=== PATIENT | female | born 1995 | race African-American/Black ===

== ENCOUNTER 2020-01-09 17:33 | Emergency (ER) | payer OTHER ==
[~2020-01-09] VITALS: Ht 157.5 cm; Wt 51.9 kg
--- NOTE | 2020-01-09 17:40 | Emergency Department Note ---
History of Present Illnes History of Present Illness Chief Complaint: Genitourinary History of Present Illness This is a 24 year old female presents to the ED for pelvic discharge white s josiah this AM. Patient denies abd pain , vb . PMH of BV . Historian: Patient Arrival Mode: Car Onset (how long ago): hour(s) Severity: mild Onset quality: gradual Duration (how long): hour(s) Timing of current episode: constant Progression: unchanged Chronicity: recurrent Context: Denies recent illness, Denies recent surgery, Denies recent immobilization, Denies recent travel, Denies trauma/injury, Denies new medicati ons, Denies hx of DVT/PE, Denies non-compliance w/ medications, Denies other Relieving factors: none Exacerbating factors: none Associated symptoms: Denies denies other symptoms, Denies confusion, Denies chest pain, Denies cough, Denies diaphoresis, Denies fever/chills, Denies headaches, Denies loss of appetite, Denies malaise, Denies nausea/vomiting, Denies rash, Denies seizure, Denies shortness of breath, Denies syncope, Denies weakness, Denies other Past Medical/Family History Physician Review I have reviewed the patient's past medical and family history. Any updates have been documented here. Past Medical History Recent Fever: No Clinical Suspicion of Infectio: No New/Unexplained Change in Ment: No Other Medical History: bacterial vaginosis Social History Smoking Cessation: Never Smoker Alcohol Use: None Any Illegal Drug Use: No Review of Systems Review of Systems Constitutional: Reports no symptoms EENTM: Reports no symptoms Cardiovascular: Reports no symptoms Respiratory: Reports no symptoms Gastrointestinal: Reports no symptoms Genitourinary: Reports discharge Musculoskeletal: Reports no symptoms Integumentary: Reports no symptoms Neurological: Reports no symptoms Psychological: Reports no symptoms Endocrine: Reports no symptoms Hematological/Lymphatic: Reports no symptoms Physical Exam Related Data Allergies: Coded Allergies: No Known Allergies (Unverified , 01/09/20) Vital signs reviewed: Yes Physical Exam CONSTITUTIONAL Constitutional: Present well-developed, Present well-nourished HENT HENT: Present normocephalic, Present atraumatic, Present oropharynx clear/moist, Present nose normal HENT L/R: Present left ext ear normal, Present right ext ear normal EYES Eyes: Reports PERRL, Reports conjunctivae normal NECK Neck: Present ROM normal PULMONARY Pulmonary: Present effort normal, Present breath sounds normal CARDIOVASCULAR Cardiovascular: Present regular rhythm, Present heart sounds normal, Present capillary refill normal, Present normal rate GASTROINTESTINAL Abdominal: Present soft, Present nontender, Present bowel sounds normal GENITOURINARY Genitourinary: Present exam deferred SKIN Skin: Present warm, Present dry MUSCULOSKELETAL Musculoskeletal: Present ROM normal NEUROLOGICAL Neurological: Present alert, Present oriented x 3, Present no gross motor or sensory deficits PSYCHOLOGICAL Psychological: Present mood/affect normal, Present judgement normal Results Laboratory Lab results reviewed: Yes Laboratory comments UA : neg UPT : neg Assessment & Plan Medical Decision Making MDM Diff DX : PID, BV, UTI, Assessment & Plan Final Impression: (1) (2) Discharge from the vagina Depart Disposition: HOME, SELF-CARE SKYLER ASTUDILLO DO Jan 09, 2020 17:40
== END 2020-01-09 18:05 | disposition home or self-care (01) ==
LOC: FSED 17:39
DX: Z33.1 Pregnant state, incidental (principal); N89.8 Other specified noninflammatory disorders of vagina
CPT/HCPCS: 81003; 81025; 99283

== ENCOUNTER 2020-02-23 14:49 | Emergency (ER) | payer OTHER ==
[~2020-02-23] VITALS: Ht 157.5 cm; Wt 50.9 kg
[2020-02-23] MEDS ORDERED: SODIUM CHLORIDE 0.9% 1000ML 1,000 ML IV SCH (15:30)
[2020-02-23] MEDS ORDERED: ONDANSETRON HCL INJ 2MG/ML 2ML 2 MG/ML VIAL IV STA (15:35)
[2020-02-23] MEDS ORDERED: SODIUM CHLORIDE 0.9% 1000ML 1,000 ML ONE (15:44)
[2020-02-23] MEDS ORDERED: MORPHINE SULFATE INJ 4 MG/ML INJ 1ML ONE (15:44)
[2020-02-23] MEDS ORDERED: MORPHINE SULFATE INJ 4 MG/ML INJ 1ML IV ONE (15:45)
[2020-02-23 16:38] VITALS: BP 102/63
== END 2020-02-23 16:50 | disposition short-term general hospital (02) ==
LOC: FSED 15:23
DX: T21.37XA Burn of third degree of female genital region, initial encounter (principal); W22.09XA Striking against other stationary object, initial encounter; Y92.090 Kitchen in other non-institutional residence as the place of occurrence of the external cause; Z33.1 Pregnant state, incidental
CPT/HCPCS: 80053; 85025; 96374; 96375; 99284; J2270; J2405; J7030

== ENCOUNTER 2020-07-13 04:06 | Emergency (ER) | payer OTHER ==
[~2020-07-13] VITALS: Ht 157.5 cm; Wt 57.2 kg
[2020-07-13] MEDS ORDERED: ACETAMINOPHEN 325 MG TAB PO ONE (04:45)
[2020-07-13] MEDS ORDERED: AMOXICILLIN500 MG PO (04:49)
[2020-07-13] MEDS ORDERED: ACETAMINOPHEN 325 MG TAB ONE (04:51)
[2020-07-13 04:55] VITALS: BP 116/75
== END 2020-07-13 04:55 | disposition home or self-care (01) ==
LOC: FSED 04:45
DX: M54.41 Lumbago with sciatica, right side (principal)
CPT/HCPCS: 81003; 99283

== ENCOUNTER 2020-10-19 20:30 | Emergency (ER) | payer OTHER ==
[~2020-10-19] VITALS: Ht 157.5 cm; Wt 51.3 kg
[~2020-10-19 20:30] MED LIST: AMOXICILLIN500 MG PO
[2020-10-19] MEDS ORDERED: IBUPROFEN 600 MG TAB PO STA (22:01)
[2020-10-19] MEDS ORDERED: BACTRIM DS TAB1 EACH PO (22:03)
[2020-10-19] MEDS ORDERED: IBUPROFEN600 MG PO (22:04)
== END 2020-10-19 22:37 | disposition home or self-care (01) ==
LOC: FSED 20:45
DX: M54.5 Low back pain (principal); N39.0 Urinary tract infection, site not specified
CPT/HCPCS: 81003; 81025; 99283

== ENCOUNTER 2021-06-08 17:20 | Emergency (ER) | payer OTHER ==
[~2021-06-08] VITALS: Ht 157.5 cm; Wt 48.7 kg
[~2021-06-08 17:20] MED LIST changes: +BACTRIM DS TAB1 EACH PO; +IBUPROFEN600 MG PO
[2021-06-08] MEDS ORDERED: AMOXICILLIN500 MG PO ×2 (18:02→18:07)
[2021-06-08] MEDS ORDERED: FLONASE ALLERG9.9 ML INH ×2 (18:02→18:07)
[2021-06-08] MEDS ORDERED: ALLEGRA-D 12 H1 EACH PO ×2 (18:02→18:07)
== END 2021-06-08 18:09 | disposition home or self-care (01) ==
LOC: FSED 17:23
DX: J32.9 Chronic sinusitis, unspecified (principal); J30.9 Allergic rhinitis, unspecified
CPT/HCPCS: 99282

== ENCOUNTER 2021-12-02 13:10 | Emergency (ER) | payer BC, OTHER ==
[~2021-12-02] VITALS: Ht 157.5 cm; Wt 46.7 kg
[~2021-12-02 13:10] MED LIST changes: +ALLEGRA-D 12 H1 EACH PO; +FLONASE ALLERG9.9 ML INH
[2021-12-02] MEDS ORDERED: AMOXICILLIN500 M1 PO (13:45)
== END 2021-12-02 14:11 | disposition home or self-care (01) ==
LOC: FSED 13:42
DX: K04.7 Periapical abscess without sinus (principal); Z33.1 Pregnant state, incidental
CPT/HCPCS: 99282

== ENCOUNTER 2021-12-29 09:07 | Emergency (ER) | payer BC, OTHER ==
[~2021-12-29] VITALS: Ht 157.5 cm; Wt 48.1 kg
[~2021-12-29 09:07] MED LIST changes: +AMOXICILLIN500 M1 PO
[2021-12-29] MEDS ORDERED: CEPHALEXIN500 MG PO (09:52)
[2021-12-29 10:04] VITALS: BP 121/62
== END 2021-12-29 10:30 | disposition home or self-care (01) ==
LOC: FSED 09:19
DX: O23.41 Unspecified infection of urinary tract in pregnancy, first trimester (principal); O21.0 Mild hyperemesis gravidarum; M54.50 Low back pain, unspecified
CPT/HCPCS: 81003; 81025; 99282

== ENCOUNTER 2022-07-04 17:57 | Emergency (ER) | payer BC, OTHER ==
[~2022-07-04] VITALS: Ht 157.5 cm; Wt 55.8 kg
[~2022-07-04 17:57] MED LIST changes: +CEPHALEXIN500 MG PO
[2022-07-04] MEDS ORDERED: ONDANSETRON HCL INJ 2MG/ML 2ML 2 MG/ML VIAL IV STA (18:12)
[2022-07-04] MEDS ORDERED: SODIUM CHLORIDE 0.9% 1000ML 1,000 ML ONE ×2 (18:13→19:11)
[2022-07-04] MEDS ORDERED: FAMOTIDINE 20 MG/2 ML VIAL IV ONE (18:13)
[2022-07-04] MEDS ORDERED: SODIUM CHLORIDE 0.9% 1000ML 1,000 ML IV ONE ×2 (18:15→19:45)
[2022-07-04] MEDS ORDERED: FAMOTIDINE 20 MG/2 ML VIAL IV STA (18:33)
[2022-07-04 19:58] VITALS: O2SAT 98
[2022-07-04] MEDS ORDERED: CEFTRIAXONE 1 GM VIAL ONE (20:25)
[2022-07-04 20:34] VITALS: PULSE 117; RESP 17; TEMP 98
== END 2022-07-04 20:51 | disposition other institution (70) ==
LOC: FSED 18:02
DX: O21.1 Hyperemesis gravidarum with metabolic disturbance (principal); K52.9 Noninfective gastroenteritis and colitis, unspecified; R10.30 Lower abdominal pain, unspecified
CPT/HCPCS: 80053; 81003; 85025; 96374; 96376; 99284; J0696; J2405; J7030

== ENCOUNTER 2024-03-22 22:17 | Emergency (ER) | payer OTHER ==
[~2024-03-22] VITALS: Ht 157.5 cm; Wt 54.9 kg
[~2024-03-22 22:17] MED LIST changes: +IBUPROFEN200 MG PO; +TYLENOL325 MG PO
[2024-03-22 22:47] VITALS: PULSE 106; RESP 18; TEMP 98
[2024-03-22] MEDS ORDERED: METAMUCIL FIBE3.4 GM PO (23:09)
[2024-03-22 23:22] VITALS: BP 102/62; PULSE 106; RESP 18; TEMP 98; O2SAT 98
== END 2024-03-22 23:22 | disposition home or self-care (01) ==
LOC: FSED 22:45
DX: K64.4 Residual hemorrhoidal skin tags (principal); Z33.1 Pregnant state, incidental
CPT/HCPCS: 99282

== ENCOUNTER 2024-06-05 12:36 | Emergency (ER) | payer OTHER ==
[~2024-06-05] VITALS: Ht 157.5 cm; Wt 56.8 kg
[~2024-06-05 12:36] MED LIST changes: +METAMUCIL FIBE3.4 GM PO
[2024-06-05] MEDS ORDERED: METRONIDAZOLE500 MG PO (13:20)
[2024-06-05] MEDS ORDERED: MACROBID 100 M100 MG PO (13:20)
[2024-06-05 13:26] VITALS: PULSE 105; RESP 14; TEMP 98; O2SAT 97
== END 2024-06-05 13:26 | disposition home or self-care (01) ==
LOC: FSED 12:41
DX: O26.893 Other specified pregnancy related conditions, third trimester (principal); O23.43 Unspecified infection of urinary tract in pregnancy, third trimester; N39.0 Urinary tract infection, site not specified; N89.8 Other specified noninflammatory disorders of vagina
CPT/HCPCS: 81003; 99283